=== PATIENT | male | born 1965 | race Caucasian/White ===

== ENCOUNTER 2021-07-07 12:31 | Emergency (ER) | payer OTHER ==
[2021-07-07 12:47] VITALS: BP 134/79
--- NOTE | 2021-07-07 13:15 | XRAY Report ---
PROCEDURE: Hand 3 View RT INDICATIONS: Trauma TECHNIQUE: 3 views of the hand(s) acquired. COMPARISON: None FINDINGS: Bones: No acute fractures or dislocations. Mild deformity of the distal fifth metacarpal possibly re lated to remote trauma; please correlate with clinical history. No suspicious bony lesions. Soft tissues: No suspicious soft tissue calcifications. IMPRESSION: No acute fracture. No acute osseous lesion. If symptoms and/or clinical concern for pathology persist s, further assessment with repeat plain film radiographs (7-10 days) or advanced imaging (CT, MR, bon e scan) should be considered. Reviewed by: Cira Flores MD, PhD on 07/07/2021 1:14 PM PDT Approved by: Cira Flores MD, PhD on 07/07/2021 1:14 PM PDT Station ID: [id number]
--- NOTE | 2021-07-07 14:13 | ED Physician Documentation ---
PD HPI UPPER EXT INJURY - Stated complaint Stated Complaint: R HAND INJ - Chief complaint Chief Complaint: Trauma Ext - History obtained from History obtained from: Patient (Right-handed gentleman who had a ladder crushed his dominant right hand yesterday while working and has moderate hand pain over all of the metacarpals except the first. No other injuries. Declines pain medication.) Review of Systems Constitutional: reports: Reviewed and negative Eyes: reports: Reviewed and negative Ears: reports: Reviewed and negative Throat: reports: Reviewed and negative PD PAST MEDICAL HISTORY - Present Medications Home Medications: Ambulatory Orders Medication Instructions Recorded Confirmed No Known Home Medications 07/07/21 07/07/21 - Allergies Allergies/Adverse Reactions: Allergies Allergy/AdvReac Type Severity Reaction Status Date / Time Sulfa (Sulfonamide Allergy Rash Verified 07/07/21 12:45 Antibiotics) PD ED PE NORMAL - Vitals Vital signs reviewed: Yes - General General: Alert and oriented X 3, No acute distress - Extremities Extremities: Other (Some tenderness and swelling over the second through fifth distal metacarpals. Full range of motion of the hand without neurovascular compromise.) - Neuro Neuro: Alert and oriented X 3, Normal speech - Psych Psych: Normal mood, Normal affect Results - Vitals Vitals: Vital Signs - 24 hr 07/07/21 12:46 Temperature 36.8 C Heart Rate 88 Respiratory 17 Rate Blood Pressure 134/79 H O2 Saturation 98 Oxygen O2 Source Room air - Rads (name of study) Three-view x-ray of the right hand is unremarkable Radiology: EMP read contemporaneously PD MEDICAL DECISION MAKING - ED course Complexity details: other (L&I paperwork completed) Departure - Departure Disposition: 01 Home, Self Care Clinical Impression: Crushing injury of right hand Condition: Good Record reviewed to determine appropriate education?: Yes Instructions: ED Crush Injury Finger No Fx Comments: Tylenol or ibuprofen as needed for pain. Return for new or worsening symptoms. Recheck with your doctor in 1 week if not better. Discharge Date/Time: 07/07/21 14:24
== END 2021-07-07 14:24 | disposition home or self-care (01) ==
LOC: ED 12:31
DX: S67.190A Crushing injury of right index finger, initial encounter (principal); S67.192A Crushing injury of right middle finger, initial encounter; S67.194A Crushing injury of right ring finger, initial encounter; S67.196A Crushing injury of right little finger, initial encounter; W20.8XXA Other cause of strike by thrown, projected or falling object, initial encounter; Y93.89 Activity, other specified; Y99.0 Civilian activity done for income or pay
CPT/HCPCS: 1040M; 73130; 99282; 99283

== ENCOUNTER 2021-12-01 08:00 | Outpatient (CLI) | payer OTHER ==
--- NOTE | 2021-12-01 13:55 | XRAY Report ---
PROCEDURE: Toe(s) LT INDICATIONS: LEFT GREAT TOE FX TECHNIQUE: Through views of the for toe(s) acquired. COMPARISON: X-ray toes 10/17/2021 FINDINGS: Bones: There is stable alignment of the intra-articular fracture at the base of the first distal phal anx. Fracture lucencies are less visible. No suspicious bony lesions. Soft tissues: No suspicious soft tissue densities. IMPRESSION: Stable alignment and less visible fracture lucencies of the distal first phalanx base fracture. Reviewed by: Kelley Alarcon MD on 12/01/2021 1:53 PM PDT Approved by: Kelley Alarcon MD on 12/01/2021 1:53 PM PDT Station ID: [id number]
== END 2021-12-01 23:59 | disposition home or self-care (01) ==
LOC: DI.WOS 08:00
PROVIDERS: ATTEND Orthopaedic Surgery
DX: S92.422A Displaced fracture of distal phalanx of left great toe, initial encounter for closed fracture (principal)

== ENCOUNTER 2022-01-05 08:49 | Outpatient (CLI) | payer OTHER ==
--- NOTE | 2022-01-05 10:59 | XRAY Report ---
PROCEDURE: Toe(s) LT INDICATIONS: LEFT GREAT TOE FRACTURE TECHNIQUE: 3 views of the first toe(s) acquired. COMPARISON: Toe x-ray 12/01/2021 FINDINGS: Bones: There is a mildly displaced fracture at the base of the distal first phalanx with intra-articu lar extension. No suspicious bony lesions. Alignment appears unchanged noting lateral views are not comparable between current and prior exam. Soft tissues: No suspicious soft tissue densities. IMPRESSION: Continued interval healing of intra-articular fracture at the base of the distal first phalanx. Reviewed by: Kelley Alarcon MD on 01/05/2022 10:58 AM PDT Approved by: Kelley Alarcon MD on 01/05/2022 10:58 AM PDT Station ID: [id number]
== END 2022-01-05 08:50 | disposition home or self-care (01) ==
LOC: DI.WOS 08:49
PROVIDERS: ATTEND Orthopaedic Surgery
DX: S92.422D Displaced fracture of distal phalanx of left great toe, subsequent encounter for fracture with routine healing (principal); Y99.0 Civilian activity done for income or pay